=== PATIENT | male | born 1975 | race Two or more races ===

== ENCOUNTER 2019-03-29 14:49 | Emergency (ER) | payer SELFPAY ==
--- NOTE | 2019-03-29 15:08 | EDPHY ---
H & P Stated Complaint: n/v/d one day Time Seen by Provider: 03/29/19 15:08 HPI/ROS: HPI CHIEF COMPLAINT: n/v/d, abdominal pain. HISTORY OF PRESENT ILLNESS: This patient is a 43-year-old male, predominantly Vincentian-speaking only, his mom is at bedside speaks Yakut and Vincentian fluently felt comfortable translating. For the past 24-48 hours he has had nausea vomiting abdominal pain and diarrhea. He reports weekend he had a large amount of alcohol to drink. Typically drinks 5-6 beers per night. Also did cocaine this we can. He states unable to tolerate anything by mouth as he has had ongoing nausea vomiting every time chest drink something he vomited back up. He denies any chest pain or shortness of breath he does complain of periumbilical abdominal pain. Also had watery diarrhea. No fever. Decided come to the emergency room due to ongoing nausea vomiting unable to tolerate p.o.. 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 Past Medical History: Denies significant medical history Past Surgical History: Denies significant surgical history Social History: Cocaine use, alcohol use, denies other drugs. Family History: Noncontributory ROS REVIEW OF SYSTEMS: 10 Systems were reviewed and negative with the exception of the elements mentioned in the history of present illness. Exam Constitutional nontoxic no acute distress triage nursing summary reviewed, vital signs reviewed, awake/alert. Eyes normal conjunctivae and sclera, EOMI, PERRLA. HENT normal inspection, atraumatic, moist mucus membranes, no epistaxis, neck supple/ no meningismus, no raccoon eyes. Respiratory clear to auscultation bilaterally, normal breath sounds, no respiratory distress, no wheezing. Cardiovascular rate normal, regular rhythm, no murmur, no edema, distal pulses normal. Gastrointestinal mild tender palpation mid abdomen no peritoneal signs, no rebound, no guarding, normal bowel sounds, no distension, no pulsatile mass. Genitourinary no CVA tenderness. Musculoskeletal no midline vertebral tenderness, full range of motion, no calf swelling, no tenderness of extremities, no meningismus, good pulses, neurovascularly intact. Skin pink, warm, & dry, no rash, skin atraumatic. Neurologic awake, alert and oriented x 3, AAOx3, moves all 4 extremities equally, motor intact, sensory intact, CN II-XII intact, normal cerebellar, normal vision, normal speech. Psychiatric normal mood/affect. Heme/Lymph/Immune no lymphadenopathy. Differential Diagnosis: Differential diagnosis includes but is not limited to and in no particular order: Bowel obstruction, appendicitis, gallbladder disease, diverticulitis, colitis, enteritis, perforated viscus, gastritis, GERD , esophagitis, urinary tract infection, pyelonephritis, kidney stones Medical Decision Making: Plan for this patient IV establishment IV fluid bolus 2 L normal saline, IV Zofran 4 mg for nausea, IV Pepcid for GI upset, basic labs , urinalysis, urine drug screen, lipase, and re-evaluate. Additionally due the periumbilical pain and vomiting will proceed with CT scan abdomen pelvis with IV contrast rule out acute appendicitis. Re-evaluation: 1806: PATIENT RE-EVALUATED THIS TIME IS RESTING COMFORTABLY RE-EXAMINATION OF HIS ABDOMEN IS SOFT NONTENDER. HE IS NOT VOMITING. HE DID GO TO THE BATHROOM AND HAVE WATERY NONBLOODY DIARRHEA HERE. HE IS REQUESTING DISCHARGE, HE FEELS MUCH BETTER AFTER 2 L OF IV FLUIDS. IV ZOFRAN. HE HAS LAB WORK HAS BEEN REVIEWED HE DOES HAVE SLIGHTLY ELEVATED LFTS. I HIGHLY RECOMMEND HE REFRAIN FROM DRINKING ALCOHOL AND FOLLOWS UP WITH HIS PRIMARY CARE DOCTOR FOR RECHECK OF HIS LFTS. ADDITIONALLY HIGHLY RECOMMEND HE REFRAIN FROM DOING COCAINE. WILL GIVE HIM PRESCRIPTION FOR PHENERGAN FOR NAUSEA, ZANTAC FOR GI UPSET, I RECOMMEND [id number] IMODIUM. I DO BELIEVE HE IS HAVING NAUSEA VOMITING DIARRHEA FROM COCAINE USE, ALCOHOL USE. HIGHLY RECOMMEND REFRAIN FROM DOING EITHER OF THESE. WE DISCUSSED A BLAND DIET. HE UNDERSTANDS TO EVENTS DIET SLOWLY OVER THE NEXT 72 HR NO SPICY FATTY GREASY FOODS. ADDITIONALLY WE DISCUSSED RETURN PRECAUTIONS RETURN TO THE EMERGENCY ROOM IF WORSENING ABDOMINAL PAIN, FEVER, VOMITING, NOT DOING WELL. THIS WAS DISCUSSED AT LENGTH WITH HIM WITH HIS FRIEND (christian) IN THE ROOM/SHE INTERPRETS AND HE FEELS COMFORTABLE WITH THIS. Source: Patient - Medical/Surgical History Other PMH: none Constitutional: Initial Vital Signs Temperature (C) 36.7 C 03/29/19 15:00 Heart Rate 76 03/29/19 15:00 Respiratory Rate 20 03/29/19 15:00 Blood Pressure 129/82 H 03/29/19 15:00 O2 Sat (%) 96 03/29/19 15:00 O2 Delivery Mode Room Air Allergies/Adverse Reactions: No Known Allergies Allergy (Verified 03/29/19 15:02) Home Medications: Medication Instructions Recorded Promethazine HCl 25 mg PO Q6-8PRN PRN #10 tablet 03/29/19 Ranitidine HCl [Zantac] 150 mg PO DAILY #14 tablet 03/29/19 Medical Decision Making - Diagnostics Imaging Results: Imaging Impressions Abdomen CT 03/29/19 15:16 Impression: 1. Small bowel wall thickening with adjacent omental inflammation. In addition mild thickening of the hepatic flexure with subtle surrounding fat stranding. Findings likely represent enterocolitis. 2. 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 3. Fatty liver. 4. Nonobstructing left renal calculi. Findings and recommendations discussed with Sumit Richards MD at 1603 hour, . - Data Points Laboratory Results: 03/29/19 03/29/19 03/29/19 17:34 15:35 15:21 POC Sodium 141 mEq/L mEq/L (135-145) POC Potassium 3.4 mEq/L mEq/L (3.3-5.0) POC Chloride 97.0 mEq/L mEq/L (97-110) POC Total CO2 25 mEq/L mEq/L (22-31) POC BUN 5 mg/dL L mg/dL (7-23) POC Creatinine 0.7 mg/dL mg/dL (0.7-1.3) POC Glucose 107 mg/dL H mg/dL (70-100) POC Calcium 9.6 mg/dL mg/dL (8.5-10.4) POC Total Bilirubin 2.4 mg/dL H mg/dL (0.1-1.4) POC AST 175 IU/L H IU/L (17-59) POC ALT 98 IU/L H IU/L (21-72) POC Alk Phosphatase 200 IU/L H IU/L (38-126) POC Total Protein 8.7 g/dL H g/dL (6.3-8.2) POC Albumin 4.7 g/dL g/dL (3.5-5.0) Lipase Urine Color PALE YELLOW Urine Appearance CLEAR Urine pH 8.0 H (5.0-7.5) Ur Specific [place] > 1.035 H (1.002-1.030) Urine Protein NEGATIVE (NEGATIVE) Urine Ketones 2+ H (NEGATIVE) Urine Blood NEGATIVE (NEGATIVE) Urine Nitrate NEGATIVE (NEGATIVE) Urine Bilirubin NEGATIVE (NEGATIVE) Urine Urobilinogen NEGATIVE EU EU (0.2-1.0) Ur Leukocyte Esterase NEGATIVE (NEGATIVE) Urine Glucose NEGATIVE (NEGATIVE) Urine Opiates Screen NEGATIVE Cancelled (NEGATIVE) Urine Barbiturates NEGATIVE Cancelled (NEGATIVE) Ur Phencyclidine Scrn NEGATIVE Cancelled (NEGATIVE) Ur Amphetamine Screen NEGATIVE Cancelled (NEGATIVE) U Benzodiazepines Scrn NEGATIVE Cancelled (NEGATIVE) Urine Cocaine Screen NON-NEGATIVE H Cancelled (NEGATIVE) U Marijuana (THC) Screen NEGATIVE Cancelled (NEGATIVE) 03/29/19 15:10 POC Sodium POC Potassium POC Chloride POC Total CO2 POC BUN POC Creatinine POC Glucose POC Calcium POC Total Bilirubin POC AST POC ALT POC Alk Phosphatase POC Total Protein POC Albumin Lipase 178 IU/L IU/L (23-300) Urine Color Urine Appearance Urine pH Ur Specific [place] Urine Protein Urine Ketones Urine Blood Urine Nitrate Urine Bilirubin Urine Urobilinogen Ur Leukocyte Esterase Urine Glucose Urine Opiates Screen Urine Barbiturates Ur Phencyclidine Scrn Ur Amphetamine Screen U Benzodiazepines Scrn Urine Cocaine Screen U Marijuana (THC) Screen Medications Given: Discontinued Medications Famotidine (Pepcid) 20 mg IVP EDNOW ONE Stop: 03/29/19 15:17 Last Admin: 03/29/19 15:25 Dose: 20 mg Sodium Chloride (Ns) 2,000 mls @ 0 mls/hr IV ONCE ONE PRN Reason: Wide Open Stop: 03/29/19 15:17 Last Admin: 03/29/19 15:23 Dose: 2,000 mls Ondansetron HCl (Zofran) 4 mg IVP EDNOW ONE Stop: 03/29/19 15:17 Last Admin: 03/29/19 15:23 Dose: 4 mg Point of Care Test Results: CBC CBC Collection Date 03/29/19 CBC Collection Time 15:10 WBC 4.77 RBC 4.77 HGB 14.6 HCT 43.0 PLT 143 Neut # 3.61 Neut 75.7 LYMPH # 0.52 LYMPH 10.9 MCV 90.1 Chemistry 03/29/19 15:21 POC Sodium 141 mEq/L mEq/L (135-145) POC Potassium 3.4 mEq/L mEq/L (3.3-5.0) POC Chloride 97.0 mEq/L mEq/L (97-110) POC Total CO2 25 mEq/L mEq/L (22-31) POC BUN 5 mg/dL L mg/dL (7-23) POC Creatinine 0.7 mg/dL mg/dL (0.7-1.3) POC Glucose 107 mg/dL H mg/dL (70-100) POC Calcium 9.6 mg/dL mg/dL (8.5-10.4) POC Total Bilirubin 2.4 mg/dL H mg/dL (0.1-1.4) POC AST 175 IU/L H IU/L (17-59) POC ALT 98 IU/L H IU/L (21-72) POC Alk Phosphatase 200 IU/L H IU/L (38-126) POC Total Protein 8.7 g/dL H g/dL (6.3-8.2) POC Albumin 4.7 g/dL g/dL (3.5-5.0) Departure - Departure Disposition: Home, Routine, Self-Care Clinical Impression: Cocaine abuse, Alcohol abuse, Elevated liver enzymes Abdominal pain Qualifiers: Abdominal location: generalized Qualified Code(s): R10.84 - Generalized abdominal pain Vomiting Qualifiers: Vomiting type: unspecified Vomiting Intractability: non-intractable Nausea presence: with nausea Qualified Code(s): R11.2 - Nausea with vomiting, unspecified Diarrhea Qualifiers: Diarrhea type: unspecified type Qualified Code(s): R19.7 - Diarrhea, unspecified Condition: Good Instructions: Gastritis (ED), Dehydration (ED), Cocaine Abuse (ED), At-Risk Alcohol Use (ED), Acute Nausea and Vomiting (ED), Acute Diarrhea (ED) Additional Instructions: 1. BLAND DIET OVER THE NEXT 72 HOURS, NO SPICY OR FATTY OR GREASY FOODS 2. ABSOLUTELY NO ALCOHOL USE 3. ABSOLUTELY NO COCAINE USE 4. INCREASE YOUR CALORIES 5. RETURN TO THE ER IF WORSENING ABDOMINAL PAIN, FEVER, VOMITING, NOT DOING WELL. 6. REST 7. STAY WELL HYDRATED. 8. OVER THE COUNTER IMMODIUM. 9. YOUR LIVER ENZYMES WERE SLIGHTLY ELEVATED, PLEASE STOP DRINKING ALCOHOL, FOLLOW UP WITH YOUR DOCTOR AND HAVE THESE RE-CHECKED. Referrals: NONE *PRIMARY CARE P,. [Primary Care Provider] - As per Instructions [facility],. [Clinic] - As per Instructions Prescriptions: Promethazine HCl 25 mg PO Q6-8PRN PRN #10 tablet PRN Reason: Nausea/Vomiting, Use 1st Ranitidine HCl [Zantac] 150 mg PO DAILY #14 tablet Print Language: Vincentian
[2019-03-29] MEDS ORDERED: NS 2,000 ML IV ONE (15:16)
[2019-03-29] MEDS ORDERED: ONDANSETRON 4 MG/2 ML VIAL IVP ONE (15:16)
[2019-03-29] MEDS ORDERED: FAMOTIDINE 20 MG/2 ML SDV IVP ONE (15:16)
[2019-03-29] MEDS ORDERED: IOPAMIDOL (ISOVUE-300) 100 ML BTL ONE (15:21)
[2019-03-29 18:24] VITALS: BP 125/77
== END 2019-03-29 18:35 | disposition home or self-care (01) ==
LOC: CED 14:49
DX: R10.84 Generalized abdominal pain (principal); R11.2 Nausea with vomiting, unspecified; R19.7 Diarrhea, unspecified; F14.10 Cocaine abuse, uncomplicated; F10.920 Alcohol use, unspecified with intoxication, uncomplicated; R74.8 Abnormal levels of other serum enzymes
CPT/HCPCS: 74177-PO; 80053-ER; 80305; 85025-QW-ER; 96361-ER; 96374-ER; 96375-ER; 99285-ER; J2405; Q9967